=== PATIENT | male | born 2000 | race Caucasian/White ===

== ENCOUNTER 2023-05-08 09:29 | Emergency (ER) | payer OTHER ==
[~2023-05-08] VITALS: Ht 172.7 cm; Wt 77.1 kg
[2023-05-08 09:31] VITALS: BP_SYST 1; PULSE 125; RESP 20; TEMP 98.1; O2SAT 91
[2023-05-08] MEDS: NACL 0.9% 1,000 ML IV ONE (09:44)
[2023-05-08] MEDS: ONDANSETRON 4 MG/2 ML VIAL IVP ONE (09:45)
[2023-05-08 10:01] LABS: BASOPHILS % (AUTO) 0.2 % (0.0-2.0); EOSINOPHILS % (AUTO) 0.2 % (0.0-4.0); HEMATOCRIT 43.7 % (36-52); HEMOGLOBIN 14.6 g/dL (12.0-18.0); LYMPHOCYTES # (AUTO) 4.5 K/uL (2.0-11.5); MEAN CORPUSCULAR HEMOGLOBIN 29 pg (27-31); MEAN CORPUSCULAR HGB CONC 34 g/dL (33-37); MEAN CORPUSCULAR VOLUME 85.4 fL (80-94); MONOCYTES # (AUTO) 0.8 K/uL (0.8-1.0); NEUTROPHILS # (AUTO) 11.3 K/uL (1.8-7.7); NEUTROPHILS % (AUTO) 67.6 % (42.2-75.2); PLATELET COUNT (AUTO) 292 K/uL (140-450); RED BLOOD CELL COUNT(AUTO) 5.12 MIL/uL (4.20-6.10); RED CELL DISTRIBUTION WIDTH 15.8 % (11.6-13.7); WHITE BLOOD COUNT (AUTO) 16.7 K/uL (4.8-10.8)
[2023-05-08 10:09] LABS: ANION GAP 17.5 (8-16); CALCIUM 8.2 mg/dL (8.5-10.1); CREATININE 1.2 mg/dL (0.6-1.3); POTASSIUM 3.5 mmol/L (3.5-5.1)
[2023-05-08 10:20] LABS: ALANINE AMINOTRANSFERASE 10 U/L (12-78); ALBUMIN 1.6 g/dL (3.4-5.0); ALCOHOL, BLOOD < 3 mg/dL (<10); ALKALINE PHOSPHATASE 49 U/L (50-136); ASPARTATE AMINOTRANSFERASE 8 U/L (15-37); BILIRUBIN,DIRECT 0.1 mg/dL (0.0-0.3); TOTAL BILIRUBIN 0.2 mg/dL (0.0-1.0); TOTAL PROTEIN, SERUM 3.6 g/dL (6.4-8.2)
[2023-05-08 10:22] LABS: SALICYLATE < 2.8 mg/dL (2.8-20.0)
[2023-05-08 10:27] VITALS: O2SAT 95
[2023-05-08] MEDS: diphenhydrAMINE 50 MG/ML VIAL IVP ONE (10:39)
[2023-05-08] MEDS: METOCLOPRAMIDE 10 MG/2 ML INJ VIAL IVP ONE (10:39)
[2023-05-08] MEDS: PANTOPRAZOLE 40 MG INJ VIAL IVP ONE (10:39)
[2023-05-08] MEDS ORDERED: cefTRIAXone 1,000 MG VIAL ONE (11:21)
[2023-05-08 11:56] LABS: FLU A ANTIGEN negative (NEGATIVE); FLU B ANTIGEN NEGATIVE (NEGATIVE)
[2023-05-08] MEDS ORDERED: AZITHROMYCIN 500 MG INJ VIAL IV ONE (13:11)
[2023-05-08] MEDS: AZITHROMYCIN 500 MG in DEXTROSE 5% 250 ML IV ONE (13:30)
[2023-05-08 16:16] VITALS: O2SAT 97
[2023-05-08 16:43] VITALS: BP 112/68; PULSE 105; RESP 15; TEMP 98.1; O2SAT 95
[2023-05-08 17:34] LABS: AMPHETAMINE, URINE NEGATIVE ng/ml (NEG <=1000); BARBITURATE, URINE NEGATIVE ng/ml (NEG <=200); BENZODIAZEPINE, URINE POSITIVE ng/mL (NEG <=200); CANNABINOID, URINE NEGATIVE ng/mL (NEG <=50); COCAINE, URINE NEGATIVE ng/mL (NEG <=300); OPIATE, URINE POSITIVE ng/mL (NEG <=2000); PHENCYCLIDINE SCREEN,URINE NEGATIVE ng/mL (NEG <=25)
== END 2023-05-08 16:24 | disposition short-term general hospital (02) ==
LOC: MED 09:29
DX: J96.01 Acute respiratory failure with hypoxia (principal); Z20.822 Contact with and (suspected) exposure to COVID-19; T40.411A Poisoning by fentanyl or fentanyl analogs, accidental (unintentional), initial encounter; J18.1 Lobar pneumonia, unspecified organism; K92.0 Hematemesis; Z79.899 Other long term (current) drug therapy; Y92.89 Other specified places as the place of occurrence of the external cause
CPT/HCPCS: 36415; 71045; 71275; 80048; 80076; 80305; 82550; 83605; 83880; 84484; 85025; 87040; 87426; 87804; 93005; 96361; 96365; 96367; 96375; 99291; C9113; G0480; G0482; J0456; J0696; J1200; J2405; J2765; J7030; Q9967; 96374